=== PATIENT | female | born 1950 | race Caucasian/White ===

== ENCOUNTER 2016-10-28 10:39 | Inpatient (IN) | payer MEDICARE, MEDICAID ==
[~2016-10-28] VITALS: Ht 172.7 cm; Wt 99.8 kg
[2016-10-28] VITALS (11 sets, daily range): BP systolic 109–207; BP diastolic 68–118
[2016-10-28] MEDS ORDERED: LORazepam INJ 2 MG/ML (ATIVAN) VIAL ONE (10:55)
--- NOTE | 2016-10-28 10:58 | Diagnostic Imaging Report ---
EXAM: CT HEAD WO-R/O STROKE INDICATION: Stroke. Facial weakness. COMPARISON: None. FINDINGS: No CT evidence of acute infarction. No intracranial hemorrhage, mass effect, hydrocephalus or extra-axial fluid collections. Moderate mucosal thickening in the left maxillary sinus. Osseous structures are intact. IMPRESSION: 1. No acute intracranial CT findings. 2. Moderate mucosal thickening in the left maxillary sinus. Dictated by: Dictated on workstation # [id number]
--- NOTE | 2016-10-28 11:06 | Diagnostic Imaging Report ---
EXAMINATION: Portable upright radiograph of the chest. INDICATION: Possible stroke. FINDINGS: The lungs are hyperinflated. The heart size is normal. No effusion or pneumothorax. The mediastinum and felipa appear unremarkable. IMPRESSION: Hyperinflated clear lungs. Dictated by: Dictated on workstation # [id number]
--- NOTE | 2016-10-28 11:08 | ED Neurological Problem ---
General Chief Complaint: Neuro-Stroke Like Symptoms Stated Complaint: POSS STROKE Source: family, EMS Exam Limitations: clinical condition History of Present Illness Time seen by provider: 11:16 Initial Comments To ER per EMS from home with reports of strokelike symptoms. This began actually yesterday at home with some visual changes where she states that she saw black spots and had "trouble thinking" and she felt herself to be a bit confused and she also had some trouble driving last night due to her right arm weakness. She then went to sleep and awakened this morning. At about 930 this morning she noticed that her right arm and right leg became unusable due to weakness and near flaccidity with a hot burning sensation. She has no history of stroke. Primary care is Marylou Jiménez/Dr. Abbasi at [facility] Timing/Duration: 24 hours Severity: moderate Allergies and Home Medications Allergies Coded Allergies: Tetanus Vaccines and Toxoid (Verified Allergy, Unknown, 10/28/16) Home Medications No Active Prescriptions or Reported Meds Constitutional: see HPI Eyes: No Symptoms Reported Ears, Nose, Mouth, Throat: no symptoms reported Respiratory: no symptoms reported Cardiovascular: no symptoms reported Genitourinary: no symptoms reported Musculoskeletal: no symptoms reported Skin: no symptoms reported Psychiatric/Neurological: See HPI Cognitive Dysfunction Unable to Move Lower Ext Unable to Move Upper Ext Endocrine: No Symptoms Reported Hematologic/Lymphatic: No Symptoms Reported Physical Exam Vital Signs Vital Sign - Last 12Hours 10/28/16 10/28/16 11:00 11:12 Temp 97.7 Pulse 80 Resp 16 B/P 207/118 Pulse Ox 98 O2 Delivery Nasal Cannula O2 Flow Rate 2 Capillary Refill : General Appearance: WD/WN no apparent distress obese other (her speech is difficult to understand though she states that she is hard of hearing and this is her normal speech pattern) HEENT: PERRL/EOMI normal ENT inspection TMs normal other (she denies any visual loss and her extraocular muscles are intact) Neck: non-tender full range of motion Respiratory: normal breath sounds no respiratory distress no accessory muscle use Cardiovascular: regular rate, rhythm no murmur Gastrointestinal: normal bowel sounds non tender soft Neurologic/Psychiatric: alert normal mood/affect oriented x 3 Crainal Nerves: normal hearing normal speech Motor/Sensory: sensory deficit weak motor strength RUE weak motor strength RLE Skin: normal color warm/dry Stroke Onset of Symptoms Date of Onset of Symptoms: Oct 28, 2016 Time of Symptom Onset: 11:25 Onset of Symptoms: No Symptoms onset unknown: No NIH Stroke Scale Assessment Select: Initial Level of Consciousness: 0=Alert Level of Consciousness-Questio: 0=Answers both month/age LOC Commands: 0=Performs both tasks Gaze: 0=Normal Visual Fatima: 0=No visual loss Facial Movement (Facial Paresi: 0=Normal symmetrical mnt Motor Function-Arms Right: 3=No effort/gravity Motor Function-Arms Left: 0=No drift Motor Function-Legs Right: 3=No effort/gravity Motor Function-Legs Left: 0=No drift Limb Ataxia: 2=Present in two limbs Sensory: 0=Normal:no loss Best Language: 0=No aphasia Dysarthria: 0=Normal Extinction & Inattention: 0=No abnormality NIH Stroke Scale Score: 8 Progress/Results/Core Measures Results/Orders Lab Results Laboratory Tests Test 10/28/16 11:06 10/28/16 11:07 10/28/16 13:00 Range/Units Activated Partial Thromboplast Time 28 24-35 SEC Alanine Aminotransferase (ALT/SGPT) 22 0-55 U/L Albumin 4.5 3.2-4.5 G/DL Alkaline Phosphatase 78 40-136 U/L Anion Gap 12 5-14 MMOL/L Aspartate Amino Transf (AST/SGOT) 24 5-34 U/L BUN/Creatinine Ratio 14 Basophils # (Auto) 0.0 0.0-0.1 10^3/uL Basophils (%) (Auto) 1 0-10 % Blood Urea Nitrogen 11 7-18 MG/DL Calcium Level 9.3 8.5-10.1 MG/DL Carbon Dioxide Level 26 21-32 MMOL/L Chloride Level 104 98-107 MMOL/L Creatinine 0.79 0.60-1.30 MG/DL D-Dimer 0.71 H 0.00-0.49 UG/ML Eosinophils # (Auto) 0.2 0.0-0.3 10^3/uL Eosinophils (%) (Auto) 2 0-10 % Estimat Glomerular Filtration Rate > 60 Glucose Level 108 H 70-105 MG/DL Hematocrit 45 35-52 % Hemoglobin 15.2 11.5-16.0 G/DL INR Comment 1.0 0.8-1.4 Lymphocytes # (Auto) 2.3 1.0-4.0 X 10^3 Lymphocytes (%) (Auto) 27 12-44 % Mean Corpuscular Hemoglobin 28 25-34 PG Mean Corpuscular Hemoglobin Concent 34 32-36 G/DL Mean Corpuscular Volume 84 80-99 FL Mean Platelet Volume 10.5 H 7.4-10.4 FL Monocytes # (Auto) 0.7 0.0-1.0 X 10^3 Monocytes (%) (Auto) 8 0-12 % Neutrophils # (Auto) 5.2 1.8-7.8 X 10^3 Neutrophils (%) (Auto) 62 42-75 % Platelet Count 283 130-400 10^3/uL Potassium Level 4.5 3.6-5.0 MMOL/L Prothrombin Time 12.8 12.2-14.7 SEC Red Blood Count 5.35 4.35-5.85 10^6/uL Red Cell Distribution Width 12.4 10.0-14.5 % Serum Alcohol < 10 <10 MG/DL Sodium Level 142 135-145 MMOL/L Total Bilirubin 0.3 0.1-1.0 MG/DL Total Protein 7.5 6.4-8.2 G/DL Troponin I < 0.30 <0.30 NG/ML White Blood Count 8.4 4.3-11.0 10^3/uL Glucometer 105 70-110 MG/DL My Orders Orders-SOCORRO DURBIN APRN Cbc With Automated Diff (10/28/16 10:43) Protime With Inr (10/28/16 10:43) Partial Thromboplastin Time (10/28/16 10:43) Comprehensive Metabolic Panel (10/28/16 10:43) Fibrin Degradation Products (10/28/16 10:43) Troponin I (10/28/16 10:43) Ua Culture If Indicated (10/28/16 10:43) Chest 1 View, Ap/Pa Only (10/28/16 10:43) Catheter(Urinary) Insert & Ass 03,15 (10/28/16 10:43) Ekg Tracing (10/28/16 10:43) Nothing By Mouth (10/28/16 Dinner) Accucheck Stat ONCE (10/28/16 10:43) Saline Lock/Iv-Start (10/28/16 10:43) Saline Lock/Iv-Start (10/28/16 10:43) Vital Signs-Stroke Q1H (10/28/16 10:43) Ct Head Wo-R/O Stroke (10/28/16 10:43) O2 (10/28/16 10:43) Intake & Output 06,14,22 (10/28/16 10:43) Monitor-Rhythm Ecg Trace Only (10/28/16 10:43) Dysphagia Screening Tool (10/28/16 10:43) Post Thrombolytic Adminstratio (10/28/16 10:43) Lorazepam Injection (Ativan Injection) (10/28/16 10:55) Hydralazine Injection (Apresoline Inject (10/28/16 11:15) Ct Angio Head/Neck (10/28/16 11:16) Ns Iv 1000 Ml (Sodium Chloride 0.9%) (10/28/16 11:30) Lorazepam Injection (Ativan Injection) (10/28/16 11:30) Alcohol (10/28/16 11:38) Drug Screen Stat (Urine) (10/28/16 11:38) Lorazepam Injection (Ativan Injection) (10/28/16 12:15) Levetiracetam Injection (Keppra Injectio (10/28/16 12:15) Levetiracetam Injection (Keppra Injectio (10/28/16 12:15) Medications Given in ED Current Medications Medications Dose Ordered Sig/Masha Route Start Time Stop Time Status Last Admin Dose Admin Hydralazine HCl 20 mg ONCE ONCE IV 10/28/16 11:15 10/28/16 11:16 DC 10/28/16 11:12 10 MG Lorazepam 2 mg ONCE ONCE IVP 10/28/16 12:15 10/28/16 12:16 DC 10/28/16 12:21 2 MG Lorazepam 2 mg STK-MED ONCE .ROUTE 10/28/16 10:55 10/28/16 11:03 DC 10/28/16 11:00 2 MG Vital Signs/I&O Vital Sign - Last 12Hours 10/28/16 10/28/16 11:00 11:12 Temp 97.7 Pulse 80 Resp 16 B/P 207/118 Pulse Ox 98 98 O2 Delivery Nasal Cannula Nasal Cannula O2 Flow Rate 2 Progress Note : Progress Note 1128-patient did have 2 episodes of brief seizure-like activity. During each of these the left leg began to shake the left arm was drawn inward and consciousness seems to be lost. These episodes lasted about 10-15 seconds each and following the first one she was lethargic. Immediately alert after 2nd episode. They occurred about 10 minutes apart. Total of 1 mg of Ativan IV was given. I discussed the case with Dr. Odom from who recommends further studies--a CT angiogram and if that is negative then an MRI. She does not recommend thrombolytics at this time. 1147-symptoms have improved. She is now able to move the right arm and hold it up against gravity and the right leg with some effort against gravity giving new NIH of 4 (was initially 8-9). She is alert and I have questioned her about prior seizure history. She states "well I never told anybody but yes I have had seizures before about 2 years ago". 1206-Again, seizure like activity in CT department while getting CT angio. 2mg IV ativan ordered. however, eyes remained open and when her name was called during these convulsions she was able to turn her head to look at me and there was no postictal period following this episode. = partial seizure (?) 1321-I have updated Dr. Odom from neurology. Given the negative CT head and CT angios that shows no large vessel occlusion she would recommend treating this as a seizure disorder with Keppra. She would obtain MRI and EEG. Diagnostic Imaging Diagonstic Imaging: CT Comments NAME: MARLO HERNANDEZ [facility] REC#: [id number] PT STATUS: REG ER : 11/23/1960 PHYSICIAN: SOCORRO DURBIN APRN ADMIT DATE: 10/28/16/ER Draft Date of Exam:10/28/16 CT HEAD WO-R/O STROKE EXAM: CT HEAD WO-R/O STROKE INDICATION: Stroke. Facial weakness. COMPARISON: None. FINDINGS: No CT evidence of acute infarction. No intracranial hemorrhage, mass effect, hydrocephalus or extra-axial fluid collections. Moderate mucosal thickening in the left maxillary sinus. Osseous structures are intact. IMPRESSION: 1. No acute intracranial CT findings. 2. Moderate mucosal thickening in the left maxillary sinus. Dictated on workstation # [id number] Dict: 10/28/16 1055 Trans: 10/28/16 1057 [facility] [id number] Interpreted by: HO WARREN MD Electronically signed by: NAME: MARLO DE SOUZA [facility] REC#: [id number] PT STATUS: REG ER : 1950 PHYSICIAN: SOCORRO DURBIN APRN ADMIT DATE: 10/28/16/ER Draft Date of Exam:10/28/16 CT ANGIO HEAD/NECK PROCEDURE: CT angiography of the head and CT angiography of the neck with and without contrast. TECHNIQUE: Contiguous noncontrast images were obtained from the skull base through the vertex. After intravenous contrast administration, helical CT angiography of the neck was performed. Source data was reformatted into multiple MIP projections. Delayed post contrast acquisition was also obtained. INDICATION: Facial weakness. CT angio neck: The cervical vertebral arteries are symmetric and codominant. There is eccentric calcified plaque at the right greater than left carotid bulbs but did not result in substantial luminal narrowing. The carotid bifurcations are patent. The cervical internal carotids are tortuous, particularly on the left, but showed no convincing hemodynamically significant stenosis. There are subcentimeter low-density nodules in the right greater than left thyroid lobes. Nonemergent outpatient thyroid ultrasound suggested as further workup. There are some shotty cervical lymph nodes without pathological features. CT angio head: Distal basilar is somewhat small and mild stenosis is suspected. The bilateral posterior cerebral arteries are patent. There is eccentric calcified plaque at the cavernous segments of the intracranial ICAs without significant luminal narrowing. 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 The ACOM and paired anterior cerebrals are unremarkable. No appreciable or suspicious asymmetries in bilateral MCA branch luminal opacification found. No focal stenosis. No aneurysm. No intraluminal thrombus or branch occlusion. No aneurysm or vascular malformation. Note is made of membrane thickening involving left greater than right maxillary sinuses. Opacification of multiple ethmoid air cells. Bilateral brianda bullosa with the mastoid air cells and middle ear cavities clear. IMPRESSION: Mild cervical intracranial calcified carotid atherosclerotic plaques without hemodynamically significant stenosis. No intraluminal thrombus or branch occlusion. No aneurysm or vascular malformation. Indeterminate thyroid nodules, nonemergent outpatient ultrasound as further workup recommended. Chronic-appearing paranasal sinus disease. Dictated on workstation # [id number] Dict: 10/28/16 1249 Trans: 10/28/16 1310 [id number] [id number] Interpreted by: NORMA CRUM Electronically signed by: Departure Communication Time/Spoke to Admitting Phy: 13:[address] Henao. We'll admit and follow recommendations from Dr. Odom, neurology. Impression Impression: Primary Impression: Right sided weakness Additional Impression: Seizure-like activity Disposition: ADMITTED INPATIENT Condition: Stable Decision to Admit Reason: Admit from ER (General) Decision to Admit/Date: Oct 28, 2016 Time/Decision to Admit Time: 13:14 Departure-Patient Inst. Scripts No Active Prescriptions or Reported Meds SOCORRO DURBIN APRN Oct 28, 2016 11:08
[2016-10-28 11:14] LABS: BASOPHILS % (AUTO) 1 % (0-10); EOSINOPHILS # (AUTO) 0.2 10^3/uL (0.0-0.3); EOSINOPHILS % (AUTO) 2 % (0-10); LYMPHOCYTES # (AUTO) 2.3 X 10^3 (1.0-4.0); LYMPHOCYTES % (AUTO) 27 % (12-44); MEAN CORPUSCULAR HEMOGLOBIN 28 PG (25-34); MEAN CORPUSCULAR HGB CONC 34 G/DL (32-36); MEAN CORPUSCULAR VOLUME 84 FL (80-99); MEAN PLATELET VOLUME 10.5 FL (7.4-10.4); MONOCYTES # (AUTO) 0.7 X 10^3 (0.0-1.0); MONOCYTES % (AUTO) 8 % (0-12); NEUTROPHILS # (AUTO) 5.2 X 10^3 (1.8-7.8); NEUTROPHILS % (AUTO) 62 % (42-75); PLATELET COUNT 283 10^3/uL (130-400); RED BLOOD COUNT 5.35 10^6/uL (4.35-5.85); RED CELL DISTRIBUTION WIDTH 12.4 % (10.0-14.5); WHITE BLOOD COUNT 8.4 10^3/uL (4.3-11.0)
[2016-10-28] MEDS ORDERED: hydrALAZINE (APESOLINE) 20 MG/ML VIAL IV ONE (11:15)
[2016-10-28 11:26] LABS: PROTHROMBIN TIME PATIENT 12.8 SEC (12.2-14.7)
[2016-10-28] MEDS ORDERED: NS IV 1000 ML 1,000 ML IV SCH (11:30)
[2016-10-28] MEDS ORDERED: LORazepam INJ 2 MG/ML (ATIVAN) VIAL IVP ONE ×2 (11:30→12:15)
[2016-10-28 11:33] LABS: ALANINE AMINOTRANSFERASE 22 U/L (0-55); ALBUMIN 4.5 G/DL (3.2-4.5); ANION GAP 12 MMOL/L (5-14); ASPARTATE AMINO TRANSFERASE 24 U/L (5-34); BILIRUBIN,TOTAL 0.3 MG/DL (0.1-1.0); BLOOD UREA NITROGEN 11 MG/DL (7-18); BUN/CREATININE RATIO 14; CALCIUM 9.3 MG/DL (8.5-10.1); CARBON DIOXIDE 26 MMOL/L (21-32); CHLORIDE 104 MMOL/L (98-107); CREATININE SERUM 0.79 MG/DL (0.60-1.30); GFR ESTIMATED > 60; GLUCOSE 108 MG/DL (70-105); POTASSIUM 4.5 MMOL/L (3.6-5.0); SODIUM 142 MMOL/L (135-145); TOTAL PROTEIN 7.5 G/DL (6.4-8.2)
[2016-10-28 11:38] LABS: TROPONIN I < 0.30 NG/ML (<0.30)
[2016-10-28] MEDS ORDERED: LEVETIRACETAM INJECTION 1,000 MG in NORMAL SALINE (BAXTER MINI) 100 ML IV SCH (12:15)
[2016-10-28] MEDS ORDERED: LEVETIRACETAM INJECTION 500 MG in NORMAL SALINE (BAXTER MINI) 50 ML IV SCH (12:15)
--- NOTE | 2016-10-28 13:11 | Diagnostic Imaging Report ---
PROCEDURE: CT angiography of the head and CT angiography of the neck with and without contrast. TECHNIQUE: Contiguous noncontrast images were obtained from the skull base through the vertex. After intravenous contrast administration, helical CT angiography of the neck was performed. Source data was reformatted into multiple MIP projections. Delayed post contrast acquisition was also obtained. INDICATION: Facial weakness. CT angio neck: The cervical vertebral arteries are symmetric and codominant. There is eccentric calcified plaque at the right greater than left carotid bulbs but did not result in substantial luminal narrowing. The carotid bifurcations are patent. The cervical internal carotids are tortuous, particularly on the left, but showed no convincing hemodynamically significant stenosis. There are subcentimeter low-density nodules in the right greater than left thyroid lobes. Nonemergent outpatient thyroid ultrasound suggested as further workup. There are some shotty cervical lymph nodes without pathological features. CT angio head: Distal basilar is somewhat small and mild stenosis is suspected. The bilateral posterior cerebral arteries are patent. There is eccentric calcified plaque at the cavernous segments of the intracranial ICAs without significant luminal narrowing. 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 The ACOM and paired anterior cerebrals are unremarkable. No appreciable or suspicious asymmetries in bilateral MCA branch luminal opacification found. No focal stenosis. No aneurysm. No intraluminal thrombus or branch occlusion. No aneurysm or vascular malformation. Note is made of membrane thickening involving left greater than right maxillary sinuses. Opacification of multiple ethmoid air cells. Bilateral brianda bullosa with the mastoid air cells and middle ear cavities clear. IMPRESSION: Mild cervical intracranial calcified carotid atherosclerotic plaques without hemodynamically significant stenosis. No intraluminal thrombus or branch occlusion. No aneurysm or vascular malformation. Indeterminate thyroid nodules, nonemergent outpatient ultrasound as further workup recommended. Chronic-appearing paranasal sinus disease. Dictated by: Dictated on workstation # [id number]
[2016-10-28 13:16] LABS: BILIRUBIN,URINE NEGATIVE (NEGATIVE); KETONES,URINE NEGATIVE (NEGATIVE); LEUKOCYTE ESTERASE ,URINE NEGATIVE (NEGATIVE); NITRITE,URINE NEGATIVE (NEGATIVE); PH,URINE 8 (5-9); PROTEIN,URINE NEGATIVE (NEGATIVE); UROBILINOGEN,URINE NORMAL (NORMAL)
[2016-10-28 13:28] LABS: SQUAMOUS EPITHELIAL CELL,UR RARE /HPF
[2016-10-28] MEDS ORDERED: AMOX-358 PO (13:30)
--- NOTE | 2016-10-28 13:37 | History & Physical-Hospitalist ---
[facility] MED STUDENT 10/28/16 1337: HPI History of Present Illness: HPI/Chief Complaint CC: weakness HPI: Ms. Dow is a 65yo with unknown PMH at this time who came into the ED with weakness on her right side. A CT head and CT angio were negative for acute changes. She was given an aspirin at this time. Her NIH stroke scale was initially 8 and later 4. She was not a good candidate for tPA. The patient had 3 separate seizure-like events while in the ED for which she was given Ativan and Keppra per neurology who was contacted. She appeared to be post-ictal after the first seizure, but was completely normal after the second seizure. They lasted roughly 15 seconds and were described more in the ED note. The patient told the ED staff that she has had seizures before. She participated very little in the interview once she was in the ICU as she was confused and lethargic, likely from the medication. At the time of speaking with her she was unable to remember why she is in the hospital. She says she is currently not taking any medication that she used to take since having a basal cell carcinoma removed from her face. Per the ED note: The patient came to the ED via EMS from home with reports of stroke-like symptoms. This began yesterday at home with some visual changes where she stated she saw black spots and had "trouble thinking" and she felt herself to be a bit confused and she also had some trouble driving last night due to her right arm weakness. She then went to sleep and awakened this morning. At about 930 this morning she noticed that her right arm and right leg became unusable due to weakness and near flaccidity with a hot burning sensation. She has no history of stroke. Primary care is Marylou Jiménez/Dr. Abbasi at [facility]. She lives alone in [place], [place]. Source: patient, RN/MD, RN notes reviewed Exam Limitations: clinical condition, physical impairment (speech impediment from partial deafness at ), other (confusion from seizure vs medication) Date Seen 10/28/16 Attending Physician Shama Perry DO PCP No,Local Physician Referring Physician Date of Admission Oct 28, 2016 at 13:26 Home Medications & Allergies Home Medications Reviewed patient Home Medication Reconciliation Form Allergies Coded Allergies: Tetanus Vaccines and Toxoid (Verified Allergy, Unknown, 10/28/16) Past Hezflxv-Xxybib-Ihhxqe Hx Patient Social History Marrital Status: single Employed/Student: employed ([employer]) Alcohol Use: Denies Use Recreational Drug Use: No Smoking Status: Current Someday Smoker Physical Abuse Screen: No Sexual Abuse: No Recent Foreign Travel: No Contact w/other who traveled: No Recent Infectious Disease Expo: No Respiratory Hx Respiratory Disorders: No Cardiovascular Cardiac Disorders: Hypertension Neurological Neurological Disorders: Seizure Disorder Reproductive System : No Cancer Cancer: Skin (basal cell on face) Review of Systems Psychiatric/Neurological: Numbness Seizure Weakness All Other Systems Reviewed Negative Unless Noted: Yes Physical Exam Physical Exam Vital Signs Vital Sign - Last 12Hours 10/28/16 10/28/16 11:00 11:12 Temp 97.7 Pulse 80 Resp 16 B/P 207/118 Pulse Ox 98 O2 Delivery Nasal Cannula O2 Flow Rate 2 Capillary Refill : Less Than 3 Seconds General Appearance: No Apparent Distress WD/WN Other (very sleepy, hard of hearing) HEENT: PERRL/EOMI TMs Normal Normal ENT Inspection Pharynx Normal Neck: Full Range of Motion Normal Inspection Non Tender Supple Respiratory: Chest Non Tender Lungs Clear Normal Breath Sounds No Accessory Muscle Use No Respiratory Distress Cardiovascular: Regular Rate, Rhythm No Edema No Gallop No JVD No Murmur Normal Peripheral Pulses Gastrointestinal: Normal Bowel Sounds No Organomegaly No Pulsatile Mass Soft Rectal: Deferred Extremity: Normal Capillary Refill Normal Inspection Normal Range of Motion Non Tender No Calf Tenderness Neurologic/Psychiatric: Alert Oriented x3 (oriented to person, place, and time but not situation) No Motor/Sensory Deficits (took some time to move right extremities but was equal strength to left by the end of the interview) Normal Mood/Affect Other (CN II-XII intact, with some limitations as patient has hearing aids and is very hard of hearing with normal speech impediment) Skin: Normal Color Warm/Dry Lymphatic: No Adenopathy Results Results/Procedures Lab Laboratory Tests 10/28/16 11:[address]: 1. No acute intracranial CT findings. 2. Moderate mucosal thickening in the left maxillary sinus. CT angio: Mild cervical intracranial calcified carotid atherosclerotic plaques without hemodynamically significant stenosis. No intraluminal thrombus or branch occlusion. No aneurysm or vascular malformation. Indeterminate thyroid nodules, nonemergent outpatient ultrasound as further workup recommended. Chronic-appearing paranasal sinus disease. chest xray: Hyperinflated clear lungs. Assessment/Plan Admission Diagnosis CVA vs seizure Assessment and Plan 65yoF with unknown PMH with right sided weakness since this morning and seizure- like activity x3 in the ED with symptoms resolved since then. 1. CVA vs seizure -CT head/angio negative for acute changes -questionable seizure history, no post-ictal phase after second seizure -will obtain patient records from Dr. Amaya in [place] -obtain MRI and EEG -continue aspirin daily -begin Keppra with Ativan 1mg prn for breakthrough seizures -will assess for residual weakness tomorrow and will evaluate need for therapy at that time 2. HTN -per pharmacy she was prescribed recently HCTZ 12.5mg and amlodipine 5mg 3. Hard of hearing -hearing aids of old per the patient and do not work well 4. h/o basal cell carcinoma 5. medication noncompliance -will need social work referral Dispo: admit to ICU Clinical Quality Measures Stroke: Date of last known well: Oct 28, 2016 Time of last known well: 11:25 Symptoms onset unknown: No SHAMA PERRY DO 10/29/16 1043: HPI History of Present Illness: HPI/Chief Complaint CC: neurological deficit HPI: administrative representative: RN states that pt has had MRI, but results are not ready at this time. Pt is coughing significantly. RN states that pt seems confused, and is telling various versions of how her symptoms presented. RN states that pt is very hard of hearing. Patient Interview: Pt states that PCP was Dr. Aniket Martin in [place], then Dr. Sarah Jiménez, but is now with Dr. Amaya at [facility]. Physical exam was stable. Pt is able to move extremities. Pt states that she smokes. Pt states that she lives alone at home. Pt has cats, being taken care of by neighbors. Pt states that she has a home health outpatient case manager from [place], if needed after DC. Dr. Perry informs pt that they are awaiting for MRI results, and will work with PT in the meantime. Scribed by Franklin Vasquez under the direct supervision of Dr. Perry. Considering the review of CT head without contrast was negative for stroke and CT angiogram was negative for stroke than MRI of the brain with and without IV contrast revealed only chronic ischemic changes without stroke I had made arrangements for discharge with home health but upon DC order input she had an unresponsive episode while still on telemetry revealing sinus rhythm of 78 blood pressure 170/80 but completely unresponsive even to sternal rub she did not have any type of shaking noted per RN but upon assessment she was unresponsive but breathing on her own not hypoxic but no incontinence noted either. It was assessed that she had some sort of seizure especially given the fact that she had had some sort of seizure disorder in the past but not on any medication in addition she had not been taking her blood pressure medication or statin therapy since April last filled [facility]. This case is very difficult considering her deafness and disability and poor historian details. I will have eICU consulted I will order EEG hold discharge orders for now considering her unresponsive state and have already faxed the update to the motor vehicle Department of [place] stating she is unsafe to drive due to seizures. I have restarted all of her home blood pressure medication in addition to statin therapy and will be monitored closely in the eICU ICU and supportive care will be provided. Source: patient, RN/MD, RN notes reviewed Exam Limitations: clinical condition, physical impairment (speech impediment from partial deafness at ), other (confusion from seizure vs medication) Home Medications & Allergies Allergies Coded Allergies: Tetanus Vaccines and Toxoid (Verified Allergy, Unknown, 10/28/16) Past Qzdaeln-Saqrab-Fjowmz Hx Patient Social History Marrital Status: single Employed/Student: unemployed Smoking Status: Current Everyday Smoker Respiratory Hx Respiratory Disorders: No Cardiovascular Hx Cardiovascular Disorders: Yes Cardiac Disorders: High Cholesterol, Hypertension Neurological Hx Neurological Disorders: Yes Neurological Disorders: Seizure Disorder Genitourinary Hx Genitourinary Disorders: No Gastrointestinal Hx Gastrointestinal Disorders: No Musculoskeletal Hx Musculoskeletal Disorders: Yes Musculoskeletal Disorders: Arthritis HEENT HX ENT Disorders: No Cancer Hx Cancer: Yes Cancer: Skin (basal cell on face) Review of Systems ROS-Unable to Obtain: few reliable details considering her disability limitations and poor hx Constitutional: see HPI dizziness malaise weakness EENTM: no symptoms reported Respiratory: no symptoms reported Cardiovascular: no symptoms reported Gastrointestinal: no symptoms reported Musculoskeletal: no symptoms reported Skin: no symptoms reported Psychiatric/Neurological: No Symptoms Reported All Other Systems Reviewed Negative Unless Noted: Yes Physical Exam Physical Exam Vital Signs Vital Sign - Last 12Hours 10/28/16 10/28/16 11:00 11:12 Temp 97.7 Pulse 80 Resp 16 B/P 207/118 Pulse Ox 98 O2 Delivery Nasal Cannula O2 Flow Rate 2 General Appearance: No Apparent Distress WD/WN Chronically ill Obese Eyes: Bilateral Eye Normal Inspection, Bilateral Eye PERRL HEENT: PERRL/EOMI Normal ENT Inspection Pharynx Normal Neck: Full Range of Motion Normal Inspection Non Tender Supple Carotid Bruit Respiratory: Chest Non Tender Lungs Clear Normal Breath Sounds No Accessory Muscle Use No Respiratory Distress Cardiovascular: Regular Rate, Rhythm No Edema No Gallop No JVD No Murmur Normal Peripheral Pulses Gastrointestinal: Normal Bowel Sounds No Organomegaly No Pulsatile Mass Non Tender Soft Back: Normal Inspection No CVA Tenderness No Vertebral Tenderness Extremity: Normal Capillary Refill Normal Inspection Normal Range of Motion Non Tender No Calf Tenderness No Pedal Edema Neurologic/Psychiatric: Alert Oriented x3 No Motor/Sensory Deficits Normal Mood/Affect Other (CN II-XII intact, with some limitations as patient has hearing aids and is very hard of hearing with normal speech impediment) Skin: Normal Color Warm/Dry Lymphatic: No Adenopathy Results Results/Procedures Lab Laboratory Tests 10/28/16 11:06 10/29/16 03:17 Assessment/Plan Admission Diagnosis Acute atypical seizure disorder with chronic ischemic changes on imaging presenting like a stroke not a TPA candidate with negative CT head, CT angiogram and MRI brain showing no acute CVA but witnessed episode in ICU per RN consistent with atypical seizure with history of seizure disorder per patient but on no seizure meds and very poor historian details Chronic deafness with speech impediment causing disruption and communication Hypertension noncompliant with meds since April Hyperlipidemia noncompliant with statin therapy Assessment and Plan Plan: Lipid profile PT Rehab eval Aspirin Reconcile home meds Cardio step-down the changed ICU due to this neurological episode likely some sort of seizure Blood pressure medication Monitor closely EICU consultation to provide any details or advice support this patient I have sent the DMV notification of seizure disorder and now unsafe to drive motor vehicle [facility] STUDENT Oct 28, 2016 13:37 SHAMA PERRY DO Oct 29, 2016 10:43
[2016-10-28] MEDS ORDERED: CATHETER FLUSH 10 ML SYR IV PRN (14:45)
[2016-10-28] MEDS ORDERED: LORazepam INJ 2 MG/ML (ATIVAN) VIAL IV PRN (14:45)
[2016-10-28] MEDS ORDERED: ONDANSETRON 4 MG/2 ML (SDV) Z0FRAN IV PRN (14:45)
[2016-10-28] MEDS: NS IV 1000 ML 1,000 ML IV SCH (15:08)
[2016-10-28] MEDS: ASPIRIN 325 MG (5 GR) TABLET PO SCH (15:11)
--- NOTE | 2016-10-28 18:50 | Diagnostic Imaging Report ---
PROCEDURE: US Carotid Duplex Bilateral. TECHNIQUE: Multiple real-time grayscale images were obtained over the carotid arteries in various projections bilaterally. Additional duplex Doppler and color Doppler images were also obtained. INDICATION: Right-sided weakness. FINDINGS: Grayscale images demonstrate mild plaque along the internal carotid arteries bilaterally. Color Doppler demonstrates patency of the common, internal and external carotid arteries on both sides. The vertebral arteries demonstrate antegrade flow on both sides. Peak systolic velocities in the right ICA are 55, 102 and 93 cm/sec from proximal to distal and on the left 75, 124 and 122 cm/sec. ICA versus CCA ratios are up to 1.1 on the right and up to 1.7 on the left. IMPRESSION: Mild atherosclerotic plaque with no evidence of significant stenosis. Underlying estimated degree of stenosis is between 25 and 40% bilaterally. Dictated by: Dictated on workstation # [id number]
[2016-10-28] MEDS: LEVETIRACETAM INJECTION 500 MG in NORMAL SALINE (BAXTER MINI) 50 ML IV SCH (21:01)
[2016-10-29] VITALS (24 sets, daily range): BP systolic 108–182; BP diastolic 68–96
[2016-10-29] MEDS: NS IV 1000 ML 1,000 ML IV SCH ×3 (01:21→15:43)
[2016-10-29] MEDS ORDERED: IBUPROFEN 800 MG (MOTRIN) TAB PO ONE ×2 (02:20→04:00)
[2016-10-29 04:25] LABS: BASOPHILS # (AUTO) 0.1 10^3/uL (0.0-0.1); BASOPHILS % (AUTO) 0 % (0-10); EOSINOPHILS % (AUTO) 0 % (0-10); LYMPHOCYTES # (AUTO) 1.9 X 10^3 (1.0-4.0); LYMPHOCYTES % (AUTO) 15 % (12-44); MEAN CORPUSCULAR HEMOGLOBIN 28 PG (25-34); MEAN CORPUSCULAR HGB CONC 34 G/DL (32-36); MEAN CORPUSCULAR VOLUME 84 FL (80-99); MEAN PLATELET VOLUME 11.1 FL (7.4-10.4); MONOCYTES # (AUTO) 0.9 X 10^3 (0.0-1.0); MONOCYTES % (AUTO) 7 % (0-12); NEUTROPHILS # (AUTO) 9.4 X 10^3 (1.8-7.8); NEUTROPHILS % (AUTO) 77 % (42-75); PLATELET COUNT 275 10^3/uL (130-400); RED BLOOD COUNT 4.86 10^6/uL (4.35-5.85); RED CELL DISTRIBUTION WIDTH 12.4 % (10.0-14.5); WHITE BLOOD COUNT 12.3 10^3/uL (4.3-11.0)
[2016-10-29 04:57] LABS: ANION GAP 11 MMOL/L (5-14); BLOOD UREA NITROGEN 8 MG/DL (7-18); BUN/CREATININE RATIO 11; CALCIUM 8.4 MG/DL (8.5-10.1); CARBON DIOXIDE 24 MMOL/L (21-32); CHLORIDE 103 MMOL/L (98-107); CREATININE SERUM 0.72 MG/DL (0.60-1.30); GFR ESTIMATED > 60; GLUCOSE 127 MG/DL (70-105); MAGNESIUM 2.2 MG/DL (1.8-2.4); PHOSPHORUS 3.2 MG/DL (2.3-4.7); SODIUM 138 MMOL/L (135-145)
[2016-10-29] MEDS: POTASSIUM CL 10MEQ/50ML IVPB 50 ML IV SCH (06:00)
[2016-10-29] MEDS: KCL 20 MEQ TAB (K-DUR) PO SCH (06:00)
[2016-10-29] MEDS: MAGNESIUM 1 GM/100 ML IVPB 100 ML IV SCH (06:00)
--- NOTE | 2016-10-29 07:36 | Diagnostic Imaging Report ---
INDICATION: Dyspnea. Right-sided weakness. COMPARISON: 10/28/2016 FINDINGS: Single frontal view of the chest demonstrates normal heart size and pulmonary vascularity. The lungs are well aerated and clear. No large pleural effusion or pneumothorax is seen. The visualized osseous structures show no acute abnormalities. IMPRESSION: 1. No acute cardiopulmonary process. Dictated by: Dictated on workstation # [id number]
[2016-10-29] MEDS ORDERED: GADOBUTROL 10 MMOL/10 ML (GADAVIST) VIAL IV ONE (08:45)
--- NOTE | 2016-10-29 09:24 | Diagnostic Imaging Report ---
PROCEDURE: MR imaging of the brain with and without contrast. TECHNIQUE: Multiplanar, multisequence MR imaging of the brain was performed with and without contrast. INDICATION: Right-sided weakness. FINDINGS: There is no diffusion restriction to suggest an acute infarct or other diffusion abnormality. The brain parenchyma demonstrates minimal periventricular T2 hyperintense signal abnormality expected for the patient's age and presents minimal changes of chronic microvascular ischemic abnormalities. There is no significant demyelination, no mass effect, brain edema or enhancing mass. The central vascular flow-voids appear preserved. No hydrocephalus. There is normal size of the pituitary gland. No hypothalamic or pineal region mass. The brainstem and cerebellum appear unremarkable. The internal auditory canals and inner ear structures appear unremarkable. Along the paracentral aspect of the skull on both sides around the falx cerebri, there are focal areas of significant thinning in the skull with that space being filled with CSF intensity. This could be congenital, or posttraumatic/postsurgical small cephaloceles. There is no herniating brain tissue seen. No adjacent brain signal abnormality. No soft tissue mass. The paranasal sinuses demonstrate mild mucosal thickening in the ethmoidal air cells and sphenoidal sinuses and the right maxillary sinus. Moderate mucosal thickening in the left maxillary sinus is seen. IMPRESSION: No acute infarct or enhancing mass. Generally mild sinus disease, most prominent in the left maxillary sinus. Dictated by: Dictated on workstation # [id number]
[2016-10-29] MEDS ORDERED: ASPIRIN 325 MG (5 GR) TABLET PO SCH (09:30)
[2016-10-29 09:35] LABS: CHOLESTEROL 260 MG/DL (< 200); DIRECT LDL 205 MG/DL (1-129); TRIGLYCERIDES 84 MG/DL (<150); VLDL CHOLESTEROL 17 MG/DL (5-40)
[2016-10-29] MEDS: LEVETIRACETAM INJECTION 500 MG in NORMAL SALINE (BAXTER MINI) 50 ML IV SCH (10:57)
[2016-10-29] MEDS: ASPIRIN 325 MG (5 GR) TABLET PO SCH (11:09)
[2016-10-29] MEDS ORDERED: ASPI-586 PO (11:11)
[2016-10-29] MEDS ORDERED: HYDR12.56 PO (11:12)
[2016-10-29] MEDS ORDERED: LOVA20TA2 PO (11:12)
[2016-10-29] MEDS ORDERED: PHEN100C4 PO (11:12)
[2016-10-29] MEDS ORDERED: AMLO5TAB4 PO (11:12)
[2016-10-29] MEDS: PHENYTOIN 100 MG (DILANTIN) CAP PO SCH ×2 (11:15→21:25)
[2016-10-29] MEDS: amLODIPine 5 MG (NORVASC) TAB PO SCH ×2 (11:15→12:37)
--- NOTE | 2016-10-29 11:15 | Discharge Inst-Home Health ---
Discharge Inst-to Home Health Patient Instructions Patient Instructions/FollowUp: Obtain new PCP to obtain follow up Patient Problems: Seizures Chronic ischemic changes on MRI [place] DISCHARGE ORDERS Allergies: Coded Allergies: Tetanus Vaccines and Toxoid (Verified Allergy, Unknown, 10/28/16) Height (Feet): 5 Height (Inches): 8 Weight (Pounds): 224 Weight (Ounces): 8.0 Home Health Need/Face to Face Reason Pt Homebound weakness I Have Seen Pt [id number]: Yes Date of Face to Face: Oct 29, 2016 Discharged To: Home Diagnosis/Conditions HH Order: med administration Strengthen Consult/Follow Up/New Order *I certify that based on my findings, the following services are medically necessary Home Health Services: Services: Nursing Services, Psychologist Social-Evaluate & Treat, Physical Therapy-Evaluate & Treat, Speech Language-Evaluate & Treat My clinical findings support the need for the above services; see Diagnosis. Dicharge Diet: No Restrictions Daily Activity as Tolerated: Yes Discharge Medications: New, Converted, or Re-newed RX: Transmited to Pharmacy I certify that this patient is under my care and that I, a nurse practitioner or a physician; a senior office support assistant sosa working with me, had a face to face encounter that - meets the physician face to face encounter requirements with this patient as dated. RAMSES PERRY DO Oct 29, 2016 11:15
--- NOTE | 2016-10-29 11:43 | Physical Therapy Evaluation ---
PT Evaluation-General Medical Diagnosis Admission Date Oct 28, 2016 at 13:26 Medical Diagnosis: seizure like activity Onset Date: Oct 28, 2016 Therapy Diagnosis Therapy Diagnosis: generalized weakness and debility Height/Weight Height (Feet): 5 Height (Inches): 8 Weight (Pounds): 224 Weight (Ounces): 8.0 Precautions Precautions/Isolations: Seizure, Fall Prevention, Standard Precautions Referral Physician: Earlene Reason for Referral: Evaluation/Treatment Medical History Pertinent Medical History: Smoking Additional Medical History seizure like symptoms at home; right sided weakness Current History ED vision changes and confusion; in ED 2-3 seizure like episodes with patient's Left LE shaking and left UE in flexion tone with LOC Reviewed History: Yes Social History Home: Single Level Current Living Status: Alone drives and works at [employer] M-F Prior/Core FIM Prior Level of Function Functional [place] Measure 0=Not Assessed/NA 4=Minimal Assistance 1=Total Assistance 5=Supervision or Setup 2=Maximal Assistance 6=Modified [place] 3=Moderate Assistance 7=Complete [place] Bed Mobility: 7 Transfers (B,C,W/C) (FIM): 7 Gait: 7 Locomotion: 7 PT Evaluation-Current Subjective OT present completing evaluation, PT in and patient agrees to evaluation. Pain Numeric Pain Scale: 5-Moderate Pain Location: Lower Location Body Site: Back Pain Description: Ache Objective Patient Orientation: Normal For Age Problem Solving: Good Attachments: Yanes Catheter telemetry;SAO2 monitor ROM/Strength ROM Lower Extremities bilateral LE WFL Strenght Lower Extremities 4+5 grossly bilaterally Integumentary/Posture Integumentary refer to nursing notes Bladder Incontinence: Yanes Cath Posture WNL Neuromuscular (Tone, Coordination, Reflexes) grossly intact bilaterally Sensory Vision: Wears Glasses Hearing: Hearing Aid/Aides Sensation Right Lower Extremit: Intact Sensation Left Lower Extremity: Intact Transfers Functional [place] Measure 0=Not Assessed/NA 4=Minimal Assistance 1=Total Assistance 5=Supervision or Setup 2=Maximal Assistance 6=Modified [place] 3=Moderate Assistance 7=Complete [place] Transfers (B, C, W/C) (FIM): 5 Scootin Rollin Supine to/from Sit: 6 Sit to/from Stand: 5 all findings above prior to seizure episode during evaluation process. Balance Sitting Static: Normal Sitting Dynamic: Normal Standing Static: Fair Treatment During evaluation process, patient states,"I don't feel good. I have a pain ( point to forehead and neck) here. During standing, patient states, "I feel like I'm flying." PT and OT quickly had patient sit EOB secondary patient began to fall back. Patient continued to communicate seated EOB, stated again, "I don't feel good." Then postured head to right and went unresponsive. PT and OT returned patient to supine position. Nursing immediately notified and team began assessment. Refer to nursing notes for their details. Assessment/Needs 65 y.o. female, currently in seizure activity and medically unstable with evolving new symptoms, to begin skilled PT, will require a new evaluation when medically stable. Rehab Potential: Guarded PT Plan Treatment/Plan Treatment Plan: Discontinue PT Time/GCodes Time In: 1110 Time Out: 1120 Total Billed Treatment Time: 10 Total Billed Treatment 1 visit [facility] 10 min BRYCE PAEZ PT Oct 29, 2016 11:43
[2016-10-29] MEDS: LEVETIRACETAM INJECTION 1,000 MG in NORMAL SALINE (BAXTER MINI) 100 ML IV SCH ×2 (12:03→23:49)
--- NOTE | 2016-10-29 12:37 | Physical Therapy Progress Note ---
Therapy Progress Note OT Initial Assessment ICU1 [id number] Order received for OT evaluation prior to planned discharge today. Patient semi reclined in bed upon OT arrival and agreeable to evaluation. She reports she is left hand dominant. She reports her symptoms of weakness, numbness and tingling from the admission are gone. UE ROM and strength are within the normal range. She lives independently in her own home in [facility] [place]. 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 She reported she has no family in the immediate area as she is from [place]. She is independent in her activities at home and drives to complete errands in the community. She wears a hearing aide in the left ear and reads lips due to hearing loss. Her speech was sometimes difficult to understand due to the hearing issues. She was admitted to the ICU from the emergency department due to CVA vs. seizure activity. It appears her history includes seizures in the past. PT entered the room and began their assessment while OT was present. We had the patient come to the edge of the bed in preparation to come to stand. She reported some dizziness but continued to communicate with us. Upon standing with minimal assist she said she was more light headed with discomfort in the forehead area, radiating posteriorly. At that point, she was seated at the edge of the bed, but suddenly became unresponsive to therapist. She was immediately placed supine and nursing notified. Please refer to nursing notes for additional nursing information. The entire episode lasted maybe 4-[address] Henao called and came to the room. At this time, therapy placed on hold awaiting any new orders, required, from the physician. No goals can be established until new orders received for OT. Thank you for this referral to Occupational Therapy. LEONOR Zuniga/Hunter 12:32 Charges: Visit, [facility] Time: 10:50-11:25 DARRIN GARCIA OT Oct 29, 2016 12:36
[2016-10-29] MEDS: ACETAMINOPHEN 500 MG TAB (TYLENOL) PO PRN (17:30)
[2016-10-29] MEDS ORDERED: SIMvastatin 40 MG (ZOCOR) TAB PO SCH (21:00)
[2016-10-30] VITALS (13 sets, daily range): BP systolic 108–155; BP diastolic 66–92
[2016-10-30] MEDS: ACETAMINOPHEN 500 MG TAB (TYLENOL) PO PRN ×2 (03:37→10:39)
[2016-10-30] MEDS: NS IV 1000 ML 1,000 ML IV SCH (03:37)
[2016-10-30 04:44] LABS: BASOPHILS % (AUTO) 0 % (0-10); EOSINOPHILS # (AUTO) 0.1 10^3/uL (0.0-0.3); EOSINOPHILS % (AUTO) 0 % (0-10); LYMPHOCYTES # (AUTO) 2.3 X 10^3 (1.0-4.0); LYMPHOCYTES % (AUTO) 17 % (12-44); MEAN CORPUSCULAR HEMOGLOBIN 28 PG (25-34); MEAN CORPUSCULAR HGB CONC 33 G/DL (32-36); MEAN CORPUSCULAR VOLUME 85 FL (80-99); MONOCYTES # (AUTO) 1.6 X 10^3 (0.0-1.0); MONOCYTES % (AUTO) 11 % (0-12); NEUTROPHILS # (AUTO) 10.2 X 10^3 (1.8-7.8); NEUTROPHILS % (AUTO) 72 % (42-75); PLATELET COUNT 251 10^3/uL (130-400); RED BLOOD COUNT 4.64 10^6/uL (4.35-5.85); RED CELL DISTRIBUTION WIDTH 12.4 % (10.0-14.5); WHITE BLOOD COUNT 14.2 10^3/uL (4.3-11.0)
[2016-10-30 05:01] LABS: BAND NEUTROPHILS 0 %; BASOPHILS % (MANUAL) 0 %; EOSINOPHILS % (MANUAL) 2 %; LYMPHOCYTES % (MANUAL) 11 %; NEUTROPHILS % (MANUAL) 79 %; REACTIVE LYMPHOCYTES 2 %
[2016-10-30 05:13] LABS: ANION GAP 11 MMOL/L (5-14); BLOOD UREA NITROGEN 9 MG/DL (7-18); BUN/CREATININE RATIO 13; CALCIUM 8.1 MG/DL (8.5-10.1); CARBON DIOXIDE 25 MMOL/L (21-32); CHLORIDE 105 MMOL/L (98-107); CREATININE SERUM 0.71 MG/DL (0.60-1.30); GFR ESTIMATED > 60; GLUCOSE 115 MG/DL (70-105); MAGNESIUM 2.2 MG/DL (1.8-2.4); PHOSPHORUS 2.9 MG/DL (2.3-4.7); SODIUM 141 MMOL/L (135-145)
[2016-10-30] MEDS: MAGNESIUM 1 GM/100 ML IVPB 100 ML IV SCH (05:23)
[2016-10-30] MEDS: POTASSIUM CL 10MEQ/50ML IVPB 50 ML IV SCH (05:23)
[2016-10-30] MEDS: KCL 20 MEQ TAB (K-DUR) PO SCH (05:23)
[2016-10-30] MEDS ORDERED: HYDROCHLOROTHIAZIDE 12.5 MG (HCTZ) CAP PO SCH (09:00)
[2016-10-30] MEDS: ASPIRIN 325 MG (5 GR) TABLET PO SCH (09:05)
[2016-10-30] MEDS: PHENYTOIN 100 MG (DILANTIN) CAP PO SCH (09:05)
[2016-10-30] MEDS: amLODIPine 5 MG (NORVASC) TAB PO SCH (09:05)
--- NOTE | 2016-10-30 11:32 | Progress Note-Hospitalist ---
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 on imaging presenting like a stroke not a TPA candidate with negative CT head, CT angiogram and MRI brain showing no acute CVA but witnessed episode in ICU per RN consistent with atypical seizure with history of seizure disorder per patient but on no seizure meds and very poor historian details Chronic deafness with speech impediment causing disruption and communication Hypertension noncompliant with meds since April Hyperlipidemia noncompliant with statin therapy Assess & Plan/Chief Complaint The patient was to have been discharged yesterday, however, she had a seizure during her physical therapy exam and this was held over. There have been no further events. This morning she states that she never told anybody that she had previous seizure disorder. However I know that she told Petey Senior nurse practitioner in the emergency room that she had had these at intervals for several years. She is very hard of hearing and has been since . This complicates communication although she appears to return lips rather well. She lives in [place]. 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. She stated that she had become very upset when she seemed to have diminished function on her right side as this would surely interfere with that service. She reports that she would be able to go home today if we would call her neighbor who would come and get her. She further asked about her ability to drive. She was informed that she would have to be seizure free for at least 6 months for this to be again available to her. It was further recommended that she connects with a [place] physician for follow-up and for consideration of EEG and neurology referral. To that end I spoke to Dr. Arriola from [facility] and she will arrange contact by phone on Tuesday and a early follow-up at their facility. Physical exam: She is alert and pleasant. Lungs are clear to auscultation. CV is regular. Abdomen is obese. Extremities show no pedal edema. She demonstrates a full movement of the lower extremities. Her ability to pump press operator and to alternate finger to thumb movements are 2+ and equal bilaterally. Impression: New diagnosis seizure disorder. My suspicion is complex partial seizure disorder. Plan: Discharge home. Instructed on no driving until medical clearance. Arrangements have been made for [facility] follow-up soon with consideration for outpatient EEG and perhaps later neurology referral. Medications are as in the discharge sequence. Labs Laboratory Tests 10/29/16 03:17 10/30/16 03:23 Copy Copies To 1: REYMUNDO ARRIOLA MD, RODNEY K MD Oct 30, 2016 11:32
--- NOTE | 2016-10-30 11:35 | Diagnostic Imaging Report ---
INDICATION: Right-sided weakness. FINDINGS: The lungs are clear. The heart size and vascularity normal. Old healed left rib deformities chronic. No effusion or pneumothorax. IMPRESSION: Stable chest. Dictated by: Dictated on workstation # [id number]
[2016-10-30] MEDS ORDERED: LEVE500T99 PO (11:39)
--- NOTE | 2016-10-30 11:43 | Discharge Inst-Home Health ---
Discharge Inst-to Home Health Patient Instructions Patient Instructions/FollowUp: Arrangement for follow-up at [facility] have been made. Expect a phone call from the facility on Tuesday to arrange follow-up visit. Patient Problems: Seizure disorder, suspect complex partial seizures. Goal: Control and management of seizures. VIA [place] DISCHARGE ORDERS Allergies: Coded Allergies: Tetanus Vaccines and Toxoid (Verified Allergy, Unknown, 10/28/16) Height (Feet): 5 Height (Inches): 8 Weight (Pounds): 220 Weight (Ounces): 8.0 Home Health Need/Face to Face Reason Pt Homebound New onset seizure disorder. Inability to drive because of seizure precautions I Have Seen Pt [id number]: Yes Date of Face to Face: Oct 30, 2016 Discharged To: Home Diagnosis/Conditions HH Order: New seizure disorder y Consult/Follow Up/New Order *I certify that based on my findings, the following services are medically necessary Home Health Services: Services: Nursing Services, Dock Superintendent-Evaluate & Treat, Physical Therapy-Evaluate & Treat My clinical findings support the need for the above services; see Diagnosis. Dicharge Diet: No Restrictions Daily Activity as Tolerated: Yes I certify that this patient is under my care and that I, a nurse practitioner or a physician; a oceanographer assistant working with me, had a face to face encounter that - meets the physician face to face encounter requirements with this patient as dated. yes DOMINIQUE COHEN MD Oct 30, 2016 11:43
[2016-10-30] MEDS: LEVETIRACETAM INJECTION 1,000 MG in NORMAL SALINE (BAXTER MINI) 100 ML IV SCH (12:42)
== END 2016-10-30 15:35 | disposition home health service (06) | DRG 101 ==
LOC: EDBD 10:42 → ER 10:42 → ICU 13:26
PROVIDERS: ADMIT Internal Medicine; ATTEND Internal Medicine
DX: G40.209 Localization-related (focal) (partial) symptomatic epilepsy and epileptic syndromes with complex partial seizures, not intractable, without status epilepticus (principal); I10 Essential (primary) hypertension; E78.5 Hyperlipidemia, unspecified; H91.90 Unspecified hearing loss, unspecified ear; Z91.19 Patient's noncompliance with other medical treatment and regimen; Z85.828 Personal history of other malignant neoplasm of skin
CPT/HCPCS: 36415; 51702; 70450; 70496; 70498; 70553; 71010; 80048; 80053; 80061; 80306; 80320; 81000; 82962; 83735; 84100; 84484; 85007; 85025; 85027; 85379; 85610; 85730; 93005; 93041; 93880; 96361; 96374; 96375; 96376

== ENCOUNTER → 2018-02-15 | Outpatient (CLI) | payer MEDICARE, MEDICAID ==
[~2018-02-15] MED LIST: AMLO5TAB4 PO; AMOX-358 PO; ASPI-586 PO; GADOBUTROL 10 MMOL/10 ML (GADAVIST) VIAL IV ONE; HYDR12.56 PO; LEVE500T99 PO; LOVA20TA2 PO; PHEN100C4 PO
--- NOTE | 2018-02-16 10:03 | Diagnostic Imaging Report ---
PROCEDURE: MR imaging of the brain with and without contrast. TECHNIQUE: Multiplanar, multisequence MR imaging of the brain was performed with and without contrast. INDICATION: Hearing loss. COMPARISON: MRI brain without and with IV contrast 10/29/2016. FINDINGS: Examination mildly limited by motion artifact. Ykpa-jw-nyyuhvpe generalized cerebral and cerebellar parenchymal volume loss is age appropriate. 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 No other abnormal intracranial signal, enhancement, restricted water diffusion or hemosiderin deposition. Normal morphology including the major midline structures, cerebellar pontine angle, sella and posterior fossa. The orbits are unremarkable on this nondedicated exam. No hydrocephalus or extra-axial fluid collections. Normal intracranial flow voids. Moderate mucosal thickening in the left maxillary sinus. The mastoids are clear. Normal bone marrow signal. IMPRESSION: 1. Age-appropriate MRI of the brain. No acute intracranial MRI findings. 2. Moderate mucosal thickening in the left maxillary sinus. Dictated by: Dictated on workstation # [id number]
== END ==
LOC: RAD 16:20
PROVIDERS: ATTEND Otolaryngology
DX: J34.89 Other specified disorders of nose and nasal sinuses (principal); H90.3 Sensorineural hearing loss, bilateral
CPT/HCPCS: 70553

== ENCOUNTER → 2018-11-02 | Outpatient (CLI) | payer MEDICARE, MEDICAID ==
[~2018-11-02] MED LIST changes: -GADOBUTROL 10 MMOL/10 ML (GADAVIST) VIAL IV ONE
--- NOTE | 2018-11-02 14:05 | Diagnostic Imaging Report ---
INDICATION: 67-year-old female, postmenopausal. Screening for osteoporosis. COMPARISON: None. FINDINGS: AP Spine L1-L4: [BMD (g/cm2): 0.933] [T-Score: -2.2] [Z-Score: -1.6] [BMD Previous: N/A] [BMD % Change: N/A] LT Hip Neck: [BMD (g/cm2): 0.875] [T-Score: -1.2] [Z-Score: -0.3] LT Hip Total: [BMD (g/cm2):0.911] [T-Score:-0.8] [Z-Score: -0.2] [BMD Previous: N/A] [BMD % Change: N/A] RT Hip Neck: [BMD (g/cm2):0.889] [T-Score:-1.1] [Z-Score:-0.2] RT Hip Total: [BMD (g/cm2):0.876] [T-score:-1.0] [Z-Score:-0.5] [BMD Previous:N/A] [BMD % Change:N/A] *Indicates significant change from prior examination based on 95% confidence level. World Health Organization criteria for BMD interpretation classify patients as Normal (T-score at or above -1.0), Osteopenic (T-score between -1.0 and -2.5) or Osteoporotic (T-score at or below -2.5). LIMITATIONS AND MODIFICATION: None. FRACTURE RISK (FRAX SCORE): The ten year probability of (%): Major Osteoporotic Fracture: [13] Hip Fracture: [2.0] IMPRESSION: 1. Osteopenia (Low bone mass). 2. Baseline examination. 3. See below National Osteoporosis Foundation guidelines on when to potentially initiate pharmacologic therapy. Based on the National Osteoporosis Foundation Guidelines, pharmacologic treatment should be initiated in any of the following, unless clinical conditions suggest otherwise: * Any patient with prior fragility fracture of the hip or vertebrae. A spine fracture indicates 5X risk for subsequent spine fracture and 2X risk for subsequent hip fracture. * Osteoporosis (T-score <-2.5). * Postmenopausal women and men age 50 and older with low bone mass/osteopenia (T-score between -1.0 and -2.5) by DXA and 10-year major osteoporotic fracture greater than 20% or a 10-year probability of hip fracture greater than 3%. These fracture risks are supplied above in the FRAX score, if applicable. * Clinician judgement and/or patient preferences may indicate treatment for people with 10-year fracture probabilities above or below these levels. Dictated by: Dictated on workstation # [id number]
--- NOTE | 2018-11-02 19:19 | Diagnostic Imaging Report ---
INDICATION: Routine screening. Comparison is made with prior mammograms from 01/23/2015. 2-D and 3-D bilateral screening mammography was performed with a Computer Aided Detection (CAD) system. FINDINGS: Scattered fibroglandular densities are identified bilaterally. The parenchymal pattern is stable. No mass or malignant appearing microcalcifications are seen. The axillae are unremarkable. IMPRESSION: No mammographic features suspicious for malignancy are identified. ACR BI-RADS Category 1: Negative. Result letter will be mailed to the patient. Note: At least 10% of breast cancer is not imaged by mammography. Dictated by: Dictated on workstation # [id number]
== END ==
LOC: RAD 08:41
PROVIDERS: ATTEND Family Medicine
DX: Z13.820 Encounter for screening for osteoporosis (principal); Z12.31 Encounter for screening mammogram for malignant neoplasm of breast; Z12.2 Encounter for screening for malignant neoplasm of respiratory organs; M85.89 Other specified disorders of bone density and structure, multiple sites; F17.210 Nicotine dependence, cigarettes, uncomplicated; Z78.0 Asymptomatic menopausal state
CPT/HCPCS: 77067; 77080

== ENCOUNTER 2020-10-03 15:29 | Emergency (ER) | payer MEDICARE, MEDICAID ==
[~2020-10-03] VITALS: Ht 172.7 cm; Wt 99.0 kg
--- NOTE | 2020-10-03 15:57 | ED Neurological Problem ---
General Chief Complaint: Neurological Problems Stated Complaint: POSS STROKE Source: patient Exam Limitations: no limitations History of Present Illness Date Seen by Provider: Oct 03, 2020 Time Seen by Provider: 15:56 Initial Comments To ER by private vehicle from [facility] with reports of possible stroke. She has had general weakness and dizziness for 1 month with worsening of symptoms for the past 3 days. Quit smoking cigarettes 3 days ago. Dizziness seems to be worse with any movement. Timing/Duration: other Severity: moderate Associated Symptoms: weakness Allergies and Home Medications Allergies Coded Allergies: Tetanus Vaccines and Toxoid (Verified Allergy, Unknown, 10/28/16) Home Medications Amlodipine Besylate 5 Mg Tablet, 5 MG PO DAILY Prescribed by: RAMSES PERRY on 10/29/16 1112 Amoxicillin/Potassium Clav 1 Each Tablet, 1 TAB PO BID, (Reported) 10 DAY SUPPLY FILLED 10-27-16 Aspirin 81 Mg Tablet.dr, 81 MG PO DAILY Prescribed by: RAMSES PERRY on 10/29/16 1111 Hydrochlorothiazide 12.5 Mg Tablet, 12.5 MG PO DAILY Prescribed by: RAMSES PERRY on 10/29/16 1112 Levetiracetam 500 Mg Tablet, 500 MG PO BID Prescribed by: DOMINIQUE COHEN on 10/30/16 1139 Lovastatin 20 Mg Tablet, 20 MG PO DAILY Prescribed by: RAMSES PERRY on 10/29/16 1112 Patient Home Medication List Home Medication List Reviewed: Yes Review of Systems Review of Systems Constitutional: see HPI, dizziness Eyes: No Symptoms Reported Ears, Nose, Mouth, Throat: no symptoms reported Respiratory: no symptoms reported Genitourinary: no symptoms reported Musculoskeletal: no symptoms reported Skin: no symptoms reported Psychiatric/Neurological: No Symptoms Reported Endocrine: No Symptoms Reported Hematologic/Lymphatic: No Symptoms Reported Past Pmqeqpu-Wiclhz-Bnvvny Hx Immunizations Up To Date Date of Influenza Vaccine: Aug 04, 2016 Past Medical History Respiratory: No High Cholesterol, Hypertension Seizure Disorder Arthritis Skin Physical Exam Vital Signs Vital Signs - First Documented 10/03/20 15:35 Temp 36.5 Pulse 82 Resp 20 B/P (MAP) 181/72 (108) Pulse Ox 94 O2 Delivery Room Air Capillary Refill : Height, Weight, BMI Height: 5'8" Weight: 220lbs. 8.0oz. 99.540086co; BMI Method:Stated General Appearance: WD/WN, no apparent distress Neck: non-tender, full range of motion Respiratory: no respiratory distress, no accessory muscle use Cardiovascular: regular rate, rhythm, no murmur, systolic murmur Gastrointestinal: normal bowel sounds, non tender Extremities: normal range of motion, non-tender Neurologic/Psychiatric: alert, normal mood/affect, oriented x 3 Crainal Nerves: normal hearing, normal speech, PERRL Skin: normal color, warm/dry Stroke Stroke Thrombolytic Exclusion Age 18 or Over: Yes Severe Hypertension: Yes GI or Bleed: No Subarachnoid Hemorrhage: No Intracranial Neoplasm/Aneurysm: No Puncture of Non-Compressible V: No Recent CPR: No Diabetic Hemorrhagic Retinopat: No Organ Biopsy: No Recent Obstetric Delivery: No Significant Hepatic Dysfunctio: No NIH Stoke Scale >22: No Improving Symptoms: No Progress/Results/Core Measures Results/Orders Lab Results Laboratory Tests Test 10/03/20 15:47 10/03/20 15:48 10/03/20 16:53 Range/Units Glucometer 89 70-110 MG/DL White Blood Count 5.7 4.3-11.0 10^3/uL Red Blood Count 4.99 3.80-5.11 10^6/uL Hemoglobin 13.7 11.5-16.0 g/dL Hematocrit 42 35-52 % Mean Corpuscular Volume 84 80-99 fL Mean Corpuscular Hemoglobin 28 25-34 pg Mean Corpuscular Hemoglobin Concent 33 32-36 g/dL Red Cell Distribution Width 13.2 10.0-14.5 % Platelet Count 318 130-400 10^3/uL Mean Platelet Volume 10.0 9.0-12.2 fL Immature Granulocyte % (Auto) 1 % Neutrophils (%) (Auto) 50 42-75 % Lymphocytes (%) (Auto) 37 12-44 % Monocytes (%) (Auto) 12 0-12 % Eosinophils (%) (Auto) 1 0-10 % Basophils (%) (Auto) 0 0-10 % Neutrophils # (Auto) 2.9 1.8-7.8 10^3/uL Lymphocytes # (Auto) 2.1 1.0-4.0 10^3/uL Monocytes # (Auto) 0.7 0.0-1.0 10^3/uL Eosinophils # (Auto) 0.0 0.0-0.3 10^3/uL Basophils # (Auto) 0.0 0.0-0.1 10^3/uL Immature Granulocyte # (Auto) 0.0 0.0-0.1 10^3/uL Prothrombin Time 13.5 12.2-14.7 SEC INR Comment 1.0 0.8-1.4 Sodium Level 138 135-145 MMOL/L Potassium Level 3.5 L 3.6-5.0 MMOL/L Chloride Level 101 98-107 MMOL/L Carbon Dioxide Level 26 21-32 MMOL/L Anion Gap 11 5-14 MMOL/L Blood Urea Nitrogen 7 7-18 MG/DL Creatinine 0.79 0.60-1.30 MG/DL Estimat Glomerular Filtration Rate > 60 BUN/Creatinine Ratio 9 Glucose Level 94 70-105 MG/DL Calcium Level 8.3 L 8.5-10.1 MG/DL Corrected Calcium 8.4 L 8.5-10.1 MG/DL Magnesium Level 2.2 1.6-2.4 MG/DL Total Bilirubin 0.5 0.1-1.0 MG/DL Aspartate Amino Transf (AST/SGOT) 26 5-34 U/L Alanine Aminotransferase (ALT/SGPT) 24 0-55 U/L Alkaline Phosphatase 84 40-136 U/L Total Protein 7.0 6.4-8.2 GM/DL Albumin 3.9 3.2-4.5 GM/DL Urine Color YELLOW Urine Clarity CLEAR Urine pH 6.0 5-9 Urine Specific [place] <=1.005 1.016-1.022 Urine Protein NEGATIVE NEGATIVE Urine Glucose (UA) NEGATIVE NEGATIVE Urine Ketones NEGATIVE NEGATIVE Urine Nitrite NEGATIVE NEGATIVE Urine Bilirubin NEGATIVE NEGATIVE Urine Urobilinogen 0.2 < = 1.0 MG/DL Urine Leukocyte Esterase NEGATIVE NEGATIVE Urine RBC (Auto) NEGATIVE NEGATIVE Urine RBC NONE /HPF Urine WBC NONE /HPF Urine Squamous Epithelial Cells RARE /HPF Urine Crystals NONE /LPF Urine Bacteria NEGATIVE /HPF Urine Casts NONE /LPF Urine Mucus NEGATIVE /LPF Urine Culture Indicated NO My Orders Orders - SOCORRO DURBIN APRN Ct Angio Head/Neck (10/03/20 15:53) Cbc With Automated Diff (10/03/20 15:53) Comprehensive Metabolic Panel (10/03/20 15:53) Ua Culture If Indicated (10/03/20 15:53) Ed Iv/Invasive Line Start (10/03/20 15:53) Protime With Inr (10/03/20 15:53) Ekg Tracing (10/03/20 15:53) Meclizine Tablet (Antivert Tablet) (10/03/20 16:00) Ns Iv 1000 Ml (Sodium Chloride 0.9%) (10/03/20 16:00) Magnesium (10/03/20 15:53) Iohexol Injection (Omnipaque 350 Mg/Ml 1 (10/03/20 16:00) Received Contrast (Hold Metformin- Contr (10/03/20 16:00) Sodium Chloride Flush (Catheter Flush Sy (10/03/20 16:00) Ns (Ivpb) (Sodium Chloride 0.9% Ivpb Bag (10/03/20 16:00) Medications Given in ED Current Medications Medications Dose Ordered Sig/Masha Route Start Time Stop Time Status Last Admin Dose Admin Iohexol 75 ml ONCE ONCE IV 10/03/20 16:00 10/03/20 16:06 DC 10/03/20 16:43 60 ML Sodium Chloride 100 ml ONCE ONCE IV 10/03/20 16:00 10/03/20 16:06 DC 10/03/20 16:43 80 ML Vital Signs/I&O 10/03/20 15:35 Temp 36.5 Pulse 82 Resp 20 B/P (MAP) 181/72 (108) Pulse Ox 94 O2 Delivery Room Air Diagnostic Imaging Diagonstic Imaging: CT Comments NAME: MARLO DE SOUZA [facility] REC#: [id number] PT STATUS: REG ER : 1950 PHYSICIAN: SOCORRO DURBIN APRN ADMIT DATE: 10/03/20/ER Draft Date of Exam:10/03/20 CT ANGIO HEAD/NECK CLINICAL INDICATION: History of stroke times approximately three years. Patient had headache and dizziness for three months. Patient has history of heart murmur. EXAMS: 1: Head CT without IV contrast. Auto Exposure Controls were utilized during the CT exam to meet ALARA standards for radiation dose reduction. 2: CT angiogram of the head and neck performed with 100 cc of Omnipaque 350 IV contrast. Sagittal and coronal MIP reformations were created for better visualization of vascular anatomy. COMPARISON: MRI of the brain performed without and with IV contrast dated 02/15/2018. FINDINGS: Head CT: There is no evidence of acute cerebral infarct, intracranial hemorrhage, or gross mass effect. There is no gross enhancement seen on the angiogram portion of the brain parenchyma. The brain parenchymal volume appears appropriate for patient's age. There is normal andrews-white matter distinction. There is no significant midline shift or herniation. There is no evidence of hydrocephalus. The basal cisterns are unremarkable. The skull, extracranial soft tissue, and orbits are unremarkable. There is minimal ethmoid sinus mucosal thickening. Temporal bones show no significant abnormality. CT Angiogram: There is dense contrast bolus seen within the right subclavian vein and superior vena cava with streak artifact obscuring portion of aortic arch and proximal great vessels. Four-vessel aortic arch is seen. Cervical left vertebral artery arises from aortic arch. The bilateral subclavian arteries, brachiocephalic artery, and bilateral common carotid arteries are patent. The left cervical ICA and left ECA are patent. There is tortuosity of the proximal cervical right ICA with mild narrowing seen. Otherwise, the right cervical ICA is patent. The right ECA is patent. The bilateral cervical vertebral arteries are patent. The intradural bilateral vertebral arteries, basilar artery, bilateral superior cerebellar arteries, and bilateral STRETCHER HELPER are patent. Petrous and cavernous portions of bilateral ICA and supraclinoid ICA are patent. The bilateral MCAs and their distal branches are patent. Bilateral A1 ACAs and their distal branches are patent. Dural venous sinuses are patent. Multiple bilateral thyroid gland nodules seen. There is a 1.7 cm low-density nodule involving the right thyroid lobe. There are small patchy areas of consolidation involving the periphery of both upper lobes. There is cervical spine vertebral body spurs. IMPRESSION: 1: Mild paranasal sinus disease. Otherwise, unremarkable CT scan of the brain. 2: CT angiogram of the caht[place] of [place] and neck shows no significant stenosis, vascular malformation, aneurysm, or dissection. 3: Thyroid gland nodules. Nonemergent thyroid ultrasound is suggested for further evaluation. 4: There is nonspecific patchy areas of consolidation involving both upper lung euceda. Infectious or inflammatory process may be considered. Clinical correlation is suggested. Dictated on workstation # [id number] Dict: 10/03/20 1649 Trans: 10/03/20 1716 [facility] [id number] Interpreted by: JAY DRISCOLL MD Electronically signed by: Departure Impression Primary Impression: Dizziness Disposition: 01 HOME, SELF-CARE Condition: Stable Departure-Patient Inst. Decision time for Depature: 17:23 Referrals: REYMUNDO GUAJARDO MD (PCP/Family) Primary Care Physician Patient Instructions: Dizziness, Adult ED Add. Discharge Instructions: 1. Follow-up with Dr. Guajardo next week. Return to ER for any concerns. Antibiotics and steroids as directed, follow-up with her in regards to the abnormal lung appearance on CT. All discharge instructions reviewed with patient and/or family. Voiced understanding. Scripts Meclizine HCl (Meclizine HCl) 25 Mg Tablet 25 MG PO BID PRN for DIZZINESS, #14 TAB Prov: SOCORRO DURBIN APRN 10/03/20 Azithromycin (Azithromycin) 250 Mg Tablet 250 MG PO UD, #6 TAB TAKE 2 TABLETS ON DAY ONE THEN TAKE 1 TABLET DAILY FOR FOUR MORE DAYS Prov: SOCORRO DURBIN APRN 10/03/20 Prednisone (Prednisone) 20 Mg Tab 40 MG PO DAILY, #6 TAB 0 Refills Prov: SOCORRO DURBIN APRN 10/03/20 SOCORRO DURBIN APRN Oct 03, 2020 15:57
[2020-10-03] MEDS ORDERED: HOLD METFORMIN - RECEIVED CONTRAST 20 ML VIAL IV SCH (16:00)
[2020-10-03] MEDS ORDERED: MECLIZINE 25 MG (ANTIVERT) TAB PO ONE (16:00)
[2020-10-03] MEDS ORDERED: NS 100 ML (IVPB) BAG IV ONE (16:00)
[2020-10-03] MEDS ORDERED: CATHETER FLUSH 10 ML SYR IV PRN (16:00)
[2020-10-03] MEDS ORDERED: NS IV 1000 ML 1,000 ML IV SCH (16:00)
[2020-10-03] MEDS ORDERED: IOHEXOL 350 MG/ML 100 ML (OMNIPAQUE 350) VIAL IV ONE (16:00)
[2020-10-03 16:08] LABS: BASOPHILS % (AUTO) 0 % (0-10); EOSINOPHILS % (AUTO) 1 % (0-10); HEMATOCRIT 42 % (35-52); HEMOGLOBIN 13.7 g/dL (11.5-16.0); LYMPHOCYTES # (AUTO) 2.1 10^3/uL (1.0-4.0); LYMPHOCYTES % (AUTO) 37 % (12-44); MEAN CORPUSCULAR HEMOGLOBIN 28 pg (25-34); MEAN CORPUSCULAR HGB CONC 33 g/dL (32-36); MEAN CORPUSCULAR VOLUME 84 fL (80-99); MONOCYTES # (AUTO) 0.7 10^3/uL (0.0-1.0); MONOCYTES % (AUTO) 12 % (0-12); NEUTROPHILS # (AUTO) 2.9 10^3/uL (1.8-7.8); NEUTROPHILS % (AUTO) 50 % (42-75); PLATELET COUNT 318 10^3/uL (130-400); WHITE BLOOD COUNT 5.7 10^3/uL (4.3-11.0)
[2020-10-03 16:12] LABS: ALBUMIN 3.9 GM/DL (3.2-4.5); CHLORIDE 101 MMOL/L (98-107); POTASSIUM 3.5 MMOL/L (3.6-5.0); SODIUM 138 MMOL/L (135-145)
[2020-10-03 16:13] LABS: CALCIUM 8.3 MG/DL (8.5-10.1); PROTHROMBIN TIME PATIENT 13.5 SEC (12.2-14.7)
[2020-10-03 16:14] LABS: GLUCOSE 94 MG/DL (70-105)
[2020-10-03 16:15] LABS: CARBON DIOXIDE 26 MMOL/L (21-32)
[2020-10-03 16:16] LABS: BILIRUBIN,TOTAL 0.5 MG/DL (0.1-1.0)
[2020-10-03 16:18] LABS: ALKALINE PHOSPHATASE 84 U/L (40-136); CREATININE SERUM 0.79 MG/DL (0.60-1.30); GFR ESTIMATED > 60
[2020-10-03 16:19] LABS: BUN/CREATININE RATIO 9
[2020-10-03 16:21] LABS: ALANINE AMINOTRANSFERASE 24 U/L (0-55); MAGNESIUM 2.2 MG/DL (1.6-2.4)
[2020-10-03 17:04] LABS: BILIRUBIN,URINE NEGATIVE (NEGATIVE); CLARITY,URINE CLEAR; COLOR,URINE YELLOW; GLUCOSE, URINE (UA) NEGATIVE (NEGATIVE); KETONES,URINE NEGATIVE (NEGATIVE); LEUKOCYTE ESTERASE ,URINE NEGATIVE (NEGATIVE); NITRITE,URINE NEGATIVE (NEGATIVE); PROTEIN,URINE NEGATIVE (NEGATIVE)
--- NOTE | 2020-10-03 17:17 | Diagnostic Imaging Report ---
CLINICAL INDICATION: History of stroke times approximately three years. Patient had headache and dizziness for three months. Patient has history of heart murmur. EXAMS: 1: Head CT without IV contrast. Auto Exposure Controls were utilized during the CT exam to meet ALARA standards for radiation dose reduction. 2: CT angiogram of the head and neck performed with 100 cc of Omnipaque 350 IV contrast. Sagittal and coronal MIP reformations were created for better visualization of vascular anatomy. COMPARISON: MRI of the brain performed without and with IV contrast dated 02/15/2018. FINDINGS: Head CT: There is no evidence of acute cerebral infarct, intracranial hemorrhage, or gross mass effect. There is no gross enhancement seen on the angiogram portion of the brain parenchyma. The brain parenchymal volume appears appropriate for patient's age. There is normal andrews-white matter distinction. There is no significant midline shift or herniation. There is no evidence of hydrocephalus. The basal cisterns are unremarkable. The skull, extracranial soft tissue, and orbits are unremarkable. There is minimal ethmoid sinus mucosal thickening. Temporal bones show no significant abnormality. CT Angiogram: There is dense contrast bolus seen within the right subclavian vein and superior vena cava with streak artifact obscuring portion of aortic arch and proximal great vessels. Four-vessel aortic arch is seen. Cervical left vertebral artery arises from aortic arch. The bilateral subclavian arteries, brachiocephalic artery, and bilateral common carotid arteries are patent. The left cervical ICA and left ECA are patent. There is tortuosity of the proximal cervical right ICA with mild narrowing seen. Otherwise, the right cervical ICA is patent. The right ECA is patent. The bilateral cervical vertebral arteries are patent. The intradural bilateral vertebral arteries, basilar artery, bilateral superior cerebellar arteries, and bilateral DIGITIZER OPERATOR are patent. Petrous and cavernous portions of bilateral ICA and supraclinoid ICA are patent. The bilateral MCAs and their distal branches are patent. Bilateral A1 ACAs and their distal branches are patent. Dural venous sinuses are patent. Multiple bilateral thyroid gland nodules seen. There is a 1.7 cm low-density nodule involving the right thyroid lobe. There are small patchy areas of consolidation involving the periphery of both upper lobes. There is cervical spine vertebral body spurs. IMPRESSION: 1: Mild paranasal sinus disease. Otherwise, unremarkable CT scan of the brain. 2: CT angiogram of the [place] of [place] and neck shows no significant stenosis, vascular malformation, aneurysm, or dissection. 3: Thyroid gland nodules. Nonemergent thyroid ultrasound is suggested for further evaluation. 4: There is nonspecific patchy areas of consolidation involving both upper lung euceda. Infectious or inflammatory process may be considered. Clinical correlation is suggested. Dictated by: Dictated on workstation # [id number]
[2020-10-03 17:20] LABS: BACTERIA,URINE NEGATIVE /HPF; SQUAMOUS EPITHELIAL CELL,UR RARE /HPF
[2020-10-03] MEDS ORDERED: MECL-149 PO (17:25)
[2020-10-03] MEDS ORDERED: AZIT250T12 PO (17:25)
[2020-10-03] MEDS ORDERED: PRD20T PO (17:25)
[2020-10-03 18:50] VITALS: BP 169/61
== END 2020-10-03 18:50 | disposition home or self-care (01) ==
LOC: EDUNIT# 15:29 → ER 15:31
DX: R42 Dizziness and giddiness (principal); G40.909 Epilepsy, unspecified, not intractable, without status epilepticus; E78.00 Pure hypercholesterolemia, unspecified; I10 Essential (primary) hypertension; Z88.7 Allergy status to serum and vaccine; Z79.82 Long term (current) use of aspirin
CPT/HCPCS: 36415; 70496; 70498; 80053; 81000; 82962; 83735; 85025; 85610; 93005; 96360

== ENCOUNTER 2022-11-22 05:31 | Outpatient (CLI) | payer MEDICARE, MEDICAID ==
[~2022-11-22 05:31] MED LIST changes: +AZIT250T12 PO; +MECL-149 PO; +PRD20T PO
[2022-11-25] MEDS ORDERED: ATOR40TA70 PO (09:28)
[2022-11-25] MEDS ORDERED: MECL-149 PO (09:28)
== END 2022-11-25 09:34 | disposition home or self-care (01) ==
LOC: PREOP 05:31
PROVIDERS: ATTEND Specialist
DX: Z01.818 Encounter for other preprocedural examination (principal)

== ENCOUNTER 2022-11-26 06:19 | Day surgery (SDC) | payer MEDICARE, MEDICAID ==
[~2022-11-26] VITALS: Ht 172.2 cm
[~2022-11-26 06:19] MED LIST changes: +ATOR40TA70 PO
[2022-11-26] MEDS: TETRACAINE 0.5% OPHTH SOLN 4 ML BTL (SINGLE DOSE ONLY) OU PRN ×4 (06:40→07:00)
[2022-11-26] MEDS ORDERED: TIMOLOL 0.5% (CATARACTS) 0.3 ML BTL OU PRN (06:45)
[2022-11-26] MEDS ORDERED: MOXIFLOXACIN OPHTH SOLN 5 MG/ML 0.3 ML SYRINGE OP ONE (06:45)
[2022-11-26] MEDS ORDERED: POVIDONE (BETADINE) OPHTH SOLN 5% 30 ML OP ONE (06:45)
[2022-11-26] MEDS: TROPICAMIDE 1% OPH SOLN (MYDRIACYL) 15 ML BTL OP SCH ×3 (06:46→07:01)
[2022-11-26] MEDS: PHENYLEPHRINE 10% OPHTH (NEO-SYN) 5 ML BTL OU SCH ×3 (06:46→07:01)
[2022-11-26 06:49] VITALS: BP 145/69
[2022-11-26] MEDS ORDERED: MIDAZOLAM 2 MG/2 ML (VERSED) VIAL ONE (07:19)
--- NOTE | 2022-11-26 07:52 | Ophthalmologist Pre-Op Note ---
Pre-Operative Progress Note H&P Reviewed The H&P was reviewed, patient examined and no changes noted. Date H&P Reviewed: Nov 26, 2022 Time H&P Reviewed: 07:32 Pre-Op Dx Cataract, Right Eye HODAN MAGUIRE MD Nov 26, 2022 07:52
--- NOTE | 2022-11-26 07:53 | Ophthalmology Operative Report ---
Cataract removal/placement IOL PREOPERATIVE DIAGNOSIS: Cataract Right Eye POSTOPERATIVE DIAGNOSIS: Cataract Right Eye PROCEDURE: Cataract removal and placement of posterior chamber implant, right eye SURGEON: Berny Maguire ANESTHESIA: Topical with sedation COMPLICATIONS: None ESTIMATED BLOOD LOSS: Minimal DESCRIPTION OF PROCEDURE: After proper informed consent was obtained, the patient, a 72 female, was taken to the Operating Room and the right eye was anesthetized with tetracaine. The right eye was then prepped and draped in the usual manner. A wire lid speculum was placed. A paracentesis was made at the left hand position. Preservative free lidocaine was injected into the anterior chamber followed by viscoelastic. A clear corneal incision was made in the temporal position. A capsulorrhexis was preformed and the central nuclear and cortical material were removed. The posterior capsule was polished and Walker 14.5 AU00T0 IOL was placed into the capsular bag. The residual viscoelastic was aspirated and balanced saline solution was injected into the anterior chamber. Moxifloxacin was injected into the anterior chamber. The wound was checked and found to be water tight. The patient tolerated the procedure well without complications. BERNY MAGUIRE MD Nov 26, 2022 07:52
[2022-11-26 07:56] VITALS: BP 145/64
[2022-11-26] MEDS ORDERED: acetaZOLAMIDE ER 500 MG CAP (DIAMOX SEQUELS) PO ONE (09:15)
--- NOTE | 2022-11-26 12:33 | Anesthesia-General Post-Op ---
MAC Patient Condition Mental Status/LOC: Same as Preop Cardiovascular: Satisfactory Nausea/Vomiting: Absent Respiratory: Satisfactory Pain: Controlled Complications: Absent Post Op Complications Complications None Follow Up Care/Instructions Patient Instructions None needed. Anesthesiology Discharge Order Discharge Order Patient is doing well, no complaints, stable vital signs, no apparent adverse anesthesia problems. No complications reported per nursing. GERSON LYMAN CRNA Nov 26, 2022 12:33
== END 2022-11-26 07:58 | disposition home or self-care (01) ==
LOC: SDC 06:19
PROVIDERS: ATTEND Specialist
DX: H25.9 Unspecified age-related cataract (principal)

== ENCOUNTER 2022-12-06 05:42 | Outpatient (CLI) | payer MEDICARE, MEDICAID | END 2022-12-07 09:10 | disposition home or self-care (01) | LOC: PREOP 05:42 | PROVIDERS: ATTEND Specialist | DX: Z01.818 Encounter for other preprocedural examination (principal) ==

== ENCOUNTER 2022-12-10 06:02 | Day surgery (SDC) | payer MEDICARE, MEDICAID ==
[~2022-12-10] VITALS: Ht 172 cm; Wt 99.0 kg
[2022-12-10 06:05] VITALS: BP 165/72
[2022-12-10] MEDS: TETRACAINE 0.5% OPHTH SOLN 4 ML BTL (SINGLE DOSE ONLY) OU PRN ×4 (06:12→06:24)
[2022-12-10] MEDS ORDERED: POVIDONE (BETADINE) OPHTH SOLN 5% 30 ML OP ONE (06:15)
[2022-12-10] MEDS ORDERED: MOXIFLOXACIN OPHTH SOLN 5 MG/ML 0.3 ML SYRINGE OP ONE (06:15)
[2022-12-10] MEDS: TROPICAMIDE 1% OPH SOLN (MYDRIACYL) 15 ML BTL OP SCH ×3 (06:15→06:25)
[2022-12-10] MEDS: PHENYLEPHRINE 10% OPHTH (NEO-SYN) 5 ML BTL OU SCH ×3 (06:15→06:25)
[2022-12-10] MEDS ORDERED: TIMOLOL 0.5% (CATARACTS) 0.3 ML BTL OU PRN (06:15)
[2022-12-10] MEDS ORDERED: MIDAZOLAM 2 MG/2 ML (VERSED) VIAL ONE (07:16)
--- NOTE | 2022-12-10 07:19 | Ophthalmologist Pre-Op Note ---
Pre-Operative Progress Note H&P Reviewed The H&P was reviewed, patient examined and no changes noted. Date H&P Reviewed: Dec 10, 2022 Time H&P Reviewed: 07:19 Pre-Op Dx Cataract, Left Eye HODAN MAGUIRE MD Dec 10, 2022 07:19
--- NOTE | 2022-12-10 07:38 | Ophthalmology Operative Report ---
Cataract removal/placement IOL PREOPERATIVE DIAGNOSIS: Cataract Left Eye POSTOPERATIVE DIAGNOSIS: Cataract Left Eye PROCEDURE: Cataract removal and placement of posterior chamber implant, left eye SURGEON: Berny Maguire ANESTHESIA: Topical with sedation COMPLICATIONS: None ESTIMATED BLOOD LOSS: Minimal DESCRIPTION OF PROCEDURE: After proper informed consent was obtained, the patient, a 72 female, was taken to the Operating Room and the left eye was anesthetized with tetracaine. The left eye was then prepped and draped in the usual manner. A wire lid speculum was placed. A paracentesis was made at the left hand position. Preservative free lidocaine was injected into the anterior chamber followed by viscoelastic. A clear corneal incision was made in the temporal position. A capsulorrhexis was preformed and the central nuclear and cortical material were removed. The posterior capsule was polished and an Walker 13.0 AU00T0 was placed into the capsular bag. The residual viscoelastic was aspirated and balanced saline solution was injected into the anterior chamber. Moxifloxacin was injected into the anterior chamber. The wound was checked and found to be water tight. The patient tolerated the procedure well without complications. BERNY MAGUIRE MD Dec 10, 2022 07:38
[2022-12-10 07:41] VITALS: BP 142/65
[2022-12-10] MEDS ORDERED: acetaZOLAMIDE ER 500 MG CAP (DIAMOX SEQUELS) PO ONE (08:30)
--- NOTE | 2022-12-10 11:58 | Anesthesia-General Post-Op ---
MAC Patient Condition Mental Status/LOC: Same as Preop Cardiovascular: Satisfactory Nausea/Vomiting: Absent Respiratory: Satisfactory Pain: Controlled Complications: Absent Post Op Complications Complications None Follow Up Care/Instructions Patient Instructions None needed. Anesthesiology Discharge Order Discharge Order Patient is doing well, no complaints, stable vital signs, no apparent adverse anesthesia problems. No complications reported per nursing. BÁRBARA WHITMORE CRNA Dec 10, 2022 11:58
== END 2022-12-10 07:43 | disposition home or self-care (01) ==
LOC: SDC 06:02
PROVIDERS: ATTEND Specialist
DX: H25.9 Unspecified age-related cataract (principal); F17.200 Nicotine dependence, unspecified, uncomplicated; Z85.828 Personal history of other malignant neoplasm of skin

== ENCOUNTER 2023-01-24 18:13 | Emergency (ER) | payer MEDICARE, MEDICAID ==
[~2023-01-24] VITALS: Ht 172.7 cm; Wt 81.6 kg
--- NOTE | 2023-01-24 19:20 | ED Fall/Injury ---
General Chief Complaint: Trauma-Non Activation Stated Complaint: FALL - RIB PAIN - RIGHT SIDE NUMB Source: patient Exam Limitations: no limitations History of Present Illness Date Seen by Provider: Jan 24, 2023 Time Seen by Provider: 19:13 Initial Comments Patient is a 72-year-old female who presents to ED with right-sided body pain. Patient states that she fell a few hours ago landing on her right side. She is complaining of right shoulder, right ribs, right hip and right ankle pain. She states she tripped over the recliner. The recliner caught her foot and landing directly on the right side with the recliner landing on her. Denies hitting her head or loss of conscious, back pain or blood thinners. She is having difficulty walking secondary to the pain in the right hip and ankle with some swelling. Numbness and tingling down into the right ankle. She has pain with deep inspiration to the right side of ribs and shoulder. She reports bruising to the right side of ribs. Denies headache, dizziness, visual change, vomit, diarrhea. Denies takingany thing for pain Allergies and Home Medications Allergies Coded Allergies: Tetanus Vaccines and Toxoid (Verified Allergy, Unknown, 11/26/22) Uncoded Allergies: flu shot (Allergy, Unknown, Vomiting, 11/26/22) Patient Home Medication List Home Medication List Reviewed: Yes Aspirin (Aspir 81) 81 Mg Tablet.dr, 81 MG PO DAILY Prescribed by: RAMSES PERRY on 10/29/16 1111 Atorvastatin Calcium (Atorvastatin Calcium) 40 Mg Tablet, 40 MG PO DAILY, (Reported) Entered as Reported by: CHELITA RUBI on 11/25/22927 Meclizine HCl (Meclizine HCl) 25 Mg Tablet, 25 MG PO UD, (Reported) Entered as Reported by: CHELITA RUBI on 11/25/22927 Review of Systems Review of Systems Constitutional: No chills, No diaphoresis, No malaise, No weakness Eyes: Denies Blurred Vision, Denies Decreased Acuity Ears, Nose, Mouth, Throat: denies ear pain, denies ear discharge Respiratory: No cough, No dyspnea on exertion Cardiovascular: No chest pain, No edema, No other Gastrointestinal: No abdominal pain Genitourinary: No decreased output, No discharge Musculoskeletal: No back pain; joint pain, joint swelling, muscle pain, muscle stiffness Skin: No change in color, No change in hair/nails All Other Systems Reviewed Negative Unless Noted: Yes Past Wjxscbd-Vmwore-Jlymox Hx Patient Social History Tobacco Use?: Yes Tobacco type used: Cigarettes Smoking Status: Current Everyday Smoker Use of E-Cig and/or Vaping dev: No Substance use?: No Alcohol Use?: No Pt feels they are or have been: No Immunizations Up To Date Tetanus Booster (TDap): Unknown PED Vaccines UTD: Yes Influenza Vaccine Up-to-Date: No; Not Current First/Initial COVID19 Vaccinat: N/A Past Medical History Surgery/Hospitalization HX: STROKE, HEART MURMUR APPE, TONSILECTOMY Surgeries: No Respiratory: No Cardiac: Yes High Cholesterol, Hypertension Neurological: Yes Seizure Disorder, Stroke Genitourinary: No Gastrointestinal: No Musculoskeletal: Yes Arthritis Cancer: Yes Skin Integumentary: No Physical Exam Vital Signs Vital Signs - First Documented 01/24/23 18:45 Temp 36.8 Pulse 68 Resp 18 B/P (MAP) 156/78 (104) Pulse Ox 94 O2 Delivery Room Air Capillary Refill : Height, Weight, BMI Height: 5'8" Weight: 220lbs. 8.0oz. [id number]; 33.00 BMI Method:Stated General Appearance: WD/WN, no apparent distress HEENT: PERRL/EOMI, normal ENT inspection, TMs normal, pharynx normal Neck: No non-tender, No full range of motion, No supple, No normal inspection Cardiovascular: No regular rate, rhythm, No no edema, No no gallop, No no JVD Respiratory: No lungs clear, No normal breath sounds, No no respiratory distress, No no accessory muscle use; other (Right-sided lateral rib tenderness with mild bruising without swelling. No crepitus. Lung sounds clear bilateral.) Gastrointestinal: No normal bowel sounds, No non tender, No soft, No no organomegaly Back: No normal inspection, No no CVA tenderness, No no vertebral tenderness Extremities: other (Tenderness to right lateral malleolus, normal active range of motion. Swelling noted. Right lateral hip tenderness with normal active range of motion. Tenderness to right anterior lateral shoulder with normal a ctive range of motion. 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, no motor/sensory deficits, alert, normal mood/affect, oriented x 3 Skin: normal color, warm/dry [place] Coma Score Best Eye Response: (4) Open Spontaneously Best Verbal Response: (5) Oriented Best Motor Response: (6) Obeys Commands [place] Total: 15 Progress/Results/Core Measures Results/Orders My Orders Orders - CONNER LAY Hip, Right, 2 Views (01/24/23 19:09) Ankle, Right, 3 Views (01/24/23 19:09) Shoulder, Right, 2 Views (01/24/23 19:10) Ribs/Unilateral With Chest (01/24/23 19:10) Vital Signs/I&O 01/24/23 01/24/23 18:45 20:49 Temp 36.8 Pulse 68 69 Resp 18 18 B/P (MAP) 156/78 (104) 156/78 Pulse Ox 94 92 O2 Delivery Room Air Room Air Departure Communication (PCP) Patient with a mechanical fall. Tripped on a recliner landing on the right side. Complete shoulder pain, right rib pain, right hip and ankle pain. Able to ambulate. Denies hitting her head or loss of consciousness. Not currently on blood thinners. Mechanical fall. No vomiting, visual changes, shortness of breath or abdominal pain. Mild bruising to the right sided ribs. Able to ambulate move all extremities. Due to the swelling, pain and tenderness x-ray of the right ankle, right hip and shoulder and ribs was ordered. X-rays were negative for acute fracture. Discussed all results with patient. Suspect soft tissue injury, bone contusion. Recommend rest, anti-inflammatories, ice. She refused pain medication here in the ER. Continues staying hydrated. Discussed range of motion exercises and follow-up. Return precaution were discussed with patient. Follow-up with orthopedic in 7 to 10 days for further evaluation. She has no abdominal tenderness on palpation. No thoracic or lumbar midline tenderness. No neurological red flag findings. Return precaution were discussed. Impression Primary Impression: Arm pain Additional Impression: Hip pain Disposition: 01 HOME, SELF-CARE Condition: Stable Departure-Patient Inst. Decision time for Depature: 20:38 Referrals: REYMUNDO GUAJARDO MD (PCP/Family) Primary Care Physician Patient Instructions: Shoulder Pain ED, Hip Pain Add. Discharge Instructions: Recommend anti-inflammatories for pain. If any worsening symptoms return back to ED for further evaluation. Ice, heat All discharge instructions reviewed with patient and/or family. Voiced understanding. CONNER LAY Jan 24, 2023 19:19
--- NOTE | 2023-01-24 19:48 | Diagnostic Imaging Report ---
EXAMINATION: Left ribs unilateral 2 view HISTORY: Chest wall pain COMPARISON: None available. FINDINGS: There are old bilateral posterior rib fractures. No acute fracture is seen. No pneumothorax. There is mild scarring in the right apex. IMPRESSION: 1. Old bilateral rib fractures, no acute fracture. Dictated by: Dictated on workstation # [id number]
--- NOTE | 2023-01-24 19:49 | Diagnostic Imaging Report ---
EXAMINATION: Right shoulder 2 or more views HISTORY: Shoulder pain COMPARISON: None available. FINDINGS: The alignment is normal. No fracture is seen. The acromioclavicular and glenohumeral joint spaces are normal. IMPRESSION: 1. No fracture. Dictated by: Dictated on workstation # [id number]
--- NOTE | 2023-01-24 19:53 | Diagnostic Imaging Report ---
INDICATION: Pain COMPARISON: None available TECHNIQUE: 3 radiographs of the right ankle dated 01/24/2023 FINDINGS: No acute fracture or dislocation. No destructive osseous process. The talar dome is unremarkable. The ankle mortise is symmetric. Small posterior and plantar calcaneal enthesophytes. Diffuse soft tissue swelling. No suspicious radiopaque foreign body. IMPRESSION: No acute osseous abnormality with diffuse soft tissue swelling and small calcaneal enthesophytes. Dictated by: Dictated on workstation # [id number]
--- NOTE | 2023-01-24 19:55 | Diagnostic Imaging Report ---
INDICATION: Pain COMPARISON: None available. TECHNIQUE: 2 radiographs of the right hip dated 01/24/2023. FINDINGS: No acute fracture or dislocation. No destructive osseous process. Degenerative changes involving the pubic symphysis. Moderate degenerative changes involving the right hip with joint space narrowing and osteophyte formation. No collapse of the right femoral head. IMPRESSION: No acute osseous abnormality with moderate degenerative changes, particularly involving the right hip. Dictated by: Dictated on workstation # [id number]
[2023-01-24 20:49] VITALS: BP 156/78
== END 2023-01-24 20:50 | disposition home or self-care (01) ==
LOC: EDUNIT# 18:13 → ER 18:14
DX: S20.211A Contusion of right front wall of thorax, initial encounter (principal); M25.511 Pain in right shoulder; M25.551 Pain in right hip; M25.571 Pain in right ankle and joints of right foot; F17.210 Nicotine dependence, cigarettes, uncomplicated; Z28.310 Unvaccinated for COVID-19; W01.0XXA Fall on same level from slipping, tripping and stumbling without subsequent striking against object, initial encounter
CPT/HCPCS: 71101; 73030; 73502; 73610